=== PATIENT | male | born 1935 | race Caucasian/White ===

== ENCOUNTER 2017-07-26 19:51 | Emergency (ER) | payer OTHER ==
[~2017-07-26] VITALS: Ht 167.6 cm; Wt 87.7 kg
[~2017-07-26 19:51] MED LIST: ASCA500 PO; ASPEC325 PO; CHOL100010 PO; CNT PO; CRS20 PO; FRRG PO; LISI-787 PO
[2017-07-26 19:54] VITALS: TEMP 36.4; Ht 167.6 cm; Wt 87.7 kg
[2017-07-26] MEDS ORDERED: OXYMETAZOLINE HCL 0.05% NA SPR 15 ML BTL ONE (19:56)
[2017-07-26] MEDS ORDERED: MULT-506 PO (20:22)
[2017-07-26] MEDS ORDERED: ROSU20TA PO (20:22)
[2017-07-26] MEDS ORDERED: FERR325T18 PO (20:22)
[2017-07-26] MEDS ORDERED: LISI-787 PO (20:22)
[2017-07-26] MEDS ORDERED: VITACAP26 PO (20:22)
[2017-07-26] MEDS ORDERED: CHOL100010 PO (20:22)
[2017-07-26] MEDS ORDERED: ASPI81TA28 PO (20:22)
--- NOTE | 2017-07-26 20:49 | EMERGENCY ROOM VISIT NOTE ---
ED Visit Note First contact with patient: 20:02 I have seen and examined this patient with Crescencio Infante and generally agree with the treatment plan as discussed. Current/Historical Medications Scheduled Aspirin (Aspirin Ec), 81 MG PO DAILY Cholecalciferol (Vitamin D), 1,000 UNITS PO DAILY Ferrous Gluconate (Ferrous Gluconate), 324 MG PO DAILY Lisinopril/Hctz (Zestoretic 20MG/12.5MG), 1 TAB PO DAILY Multivitamin (Multivitamin), 1 TAB PO DAILY Rosuvastatin Calcium (Crestor), 20 MG PO HS Vitamins C & E (Vitamin C), 1 CAP PO DAILY Allergies Coded Allergies: Hydrocodone (Unverified Adverse Reaction, Unknown, NAUSEA, 07/26/17) PT CAN'T RECALL Meperidine (Unverified Adverse Reaction, Unknown, PASSED OUT, 07/26/17) PASSED OUT Vital Signs Date Time Temp Pulse Resp B/P (MAP) Pulse Ox O2 Delivery O2 Flow Rate FiO2 07/26/17 19:54 36.4 66 18 145/84 97 Room Air Medications Administered Medications (Trade) Dose Ordered Sig/Melina Route Start Time Stop Time Status Last Admin Dose Admin Oxymetazoline HCl (Afrin 0.05% Nasal [place]) 75 sprays STK-MED ONCE .ROUTE 07/26/17 19:56 07/26/17 19:57 DC 07/26/17 19:56 75 SPRAYS Departure Information Referrals Yeni Coburn M.D. (PCP) Patient Instructions My [facility]
--- NOTE | 2017-07-26 21:10 | EMERGENCY ROOM VISIT NOTE ---
ED Visit Note First contact with patient: 20:02 CHIEF COMPLAINT: Left-sided nosebleed 1 hour HISTORY OF PRESENT ILLNESS: Patient is an 82-year-old male who presents emergency department for evaluation of a left-sided nosebleed that he was unable to get stopped at home 1 hour. He has had problems with nosebleeds intermittently, he had the nose cauterized about 3 months ago, but has had intermittent nosebleeds that he has usually been able to get stopped at home on his own. He bled this morning, which stopped and then bleeding started again about an hour ago. He tried holding pressure with his hands and placing gauze up his nose without relief. He takes a baby aspirin daily. There was no trauma to the nose and no recent upper respiratory infection. No bleeding from the right side, and no bleeding down the back of his throat. No difficulty breathing, no cough, no headache or sore throat. He has not been placing any medications up his nose. REVIEW OF SYSTEMS: Review of systems as per HPI. All other systems reviewed were negative. 10 systems reviewed. PMH: Electronic medical records are reviewed and summarized as above/below. See Problem List. SOCIAL HISTORY: Patient lives at home with his spouse. PHYSICAL EXAM: Vital Signs: Reviewed Nurse's notes. General appearance: CONSTITUTIONAL: Patient is a pleasant, well-appearing 82-year-old male who is awake and alert and in no acute distress. Nasal clamp is in place. EENT: Pupils equal, round, reactive to light and accommodation. EOMs intact without nystagmus. Sclera are anicteric. Tympanic membranes intact, with normal landmarks. External canals are clear. Oropharynx are clear. Mucous membranes are moist. Exam of the nostrils reveals a small amount of clot over the septum on the left , right nares is clear. EMERGENCY DEPARTMENT COURSE: The patient was seen and assessed as above. Afrin protocol was initiated in triage, and was in place for about 10 minutes, at which point I removed the clamp and examined his nose. There was no active bleeding. Clamp was left off, and options were discussed with the patient. At this point, it is not discernible where the bleeding is coming from and therefore cautery was not felt to be indicated. Other types of hemostatic agents and nasal packing options were discussed with the patient. At this point , he prefers little to no intervention. The nasal clamp was left off, and the patient was observed in the emergency department for an additional 30+ minutes, without any further bleeding. Given this, the patient will be discharged to home with Afrin and nasal clamps. He was instructed on how to use this at home , and if this is ineffective, he is aware that he will need to return to the emergency department and more definitive care will be indicated. The patient was discharged home with his in stable condition. Case was reviewed with attending physician. Differential diagnoses entertained included medication side effect, trauma, coagulopathy, epistaxis, among others. Medication reconciliation: I attest that I have personally reviewed the patient' s current medication list. Blood pressure screening: Patient was found to have a slightly elevated initial blood pressure due to circumstances, remaining blood pressures were normal. The patient has a history of hypertension and is followed by his PCP. Problem List Medical Problems: (1) Hyperlipidemia Nec/Nos Status: Chronic (2) Hypertension Nos Status: Chronic (3) Loose TKR - Left Status: Resolved Current/Historical Medications Scheduled Aspirin (Aspirin Ec), 81 MG PO DAILY Cholecalciferol (Vitamin D), 1,000 UNITS PO DAILY Ferrous Gluconate (Ferrous Gluconate), 324 MG PO DAILY Lisinopril/Hctz (Zestoretic 20MG/12.5MG), 1 TAB PO DAILY Multivitamin (Multivitamin), 1 TAB PO DAILY Rosuvastatin Calcium (Crestor), 20 MG PO HS Vitamins C & E (Vitamin C), 1 CAP PO DAILY Allergies Coded Allergies: Hydrocodone (Unverified Adverse Reaction, Unknown, NAUSEA, 07/26/17) PT CAN'T RECALL Meperidine (Unverified Adverse Reaction, Unknown, PASSED OUT, 07/26/17) PASSED OUT Vital Signs Date Time Temp Pulse Resp B/P (MAP) Pulse Ox O2 Delivery O2 Flow Rate FiO2 07/26/17 21:22 62 20 118/60 97 07/26/17 21:07 62 20 118/60 97 Room Air 07/26/17 19:54 36.4 66 18 145/84 97 Room Air Medications Administered Medications (Trade) Dose Ordered Sig/Melina Route Start Time Stop Time Status Last Admin Dose Admin Oxymetazoline HCl (Afrin 0.05% Nasal [place]) 75 sprays STK-MED ONCE .ROUTE 07/26/17 19:56 07/26/17 19:57 DC 07/26/17 19:56 75 SPRAYS Departure Information Impression Primary Impression: Epistaxis Referrals Yeni Coburn M.D. (PCP) Patient Instructions My [facility] Additional Instructions EPISTAXIS (NOSE BLEED) INSTRUCTIONS: Avoid scratching, rubbing, picking, or blowing your nose. The coal drier operator your nasal passages the more likely they are to bleed. The following two products are available [id number] at most drug stores/pharmacies. [place] nasal spray or similar generic saline spray to keep the nose moist 3 to 4 times a day. Apply [place] gel 2-3 times daily to the nostrils to keep them moist. If bleeding recurs apply 2 sprays of aspirin to the affected nostril, and apply direct pressure with the nasal clamp for an uninterrupted 30 minutes. On and off pressure is much less effective because it will disturb the clots that are forming. If the bleeding is still a problem after 30 minutes or is so heavy despite the pressure return to the emergency department. Continue current medications. Follow-up with the [facility] for further care and management of your nosebleeds. Follow-up with your primary care physician in 2 to 3 days for a recheck of your current condition.
[2017-07-26 21:22] VITALS: BP 118/60; PULSE 62; O2SAT 97
== END 2017-07-26 21:23 | disposition home or self-care (01) ==
LOC: C.EDB 19:52 → C.EDD 21:23
DX: R04.0 Epistaxis (principal); E78.5 Hyperlipidemia, unspecified; I10 Essential (primary) hypertension; Z79.82 Long term (current) use of aspirin